=== PATIENT | female | born 1965 | race Caucasian/White ===

== ENCOUNTER 2020-11-09 07:55 | Day surgery (SDC) | payer OTHER ==
[~2020-11-09 07:55] MED LIST: AVALIDE 300-12.1 TA1 PO; DICY20TA PO; FOLIC ACID1 MG PO; NEURONTIN800 MG PO; NIFE60TA3 PO; OMEPRAZ PO; PLAVIX75 MG PO; PRAVASTATIN SOD40 MG PO; PROCARDI; RELAFEN PO; TOPROL XL200 MG PO; ZANTAC300 MG PO
== END 2020-11-09 14:25 | disposition home or self-care (01) ==
LOC: CIR.AMB 07:55
PROVIDERS: ATTEND Orthopaedic Surgery
DX: M75.122 Complete rotator cuff tear or rupture of left shoulder, not specified as traumatic (principal); M75.22 Bicipital tendinitis, left shoulder; Z20.822 Contact with and (suspected) exposure to COVID-19